=== PATIENT | male | born 1955 | race Caucasian/White ===

== ENCOUNTER 2018-01-16 20:50 | Inpatient (IN) | payer MEDICARE ==
[~2018-01-16] VITALS: Ht 177.8 cm; Wt 113.4 kg
[2018-01-16 21:00] VITALS: BP 113/68
[2018-01-16 22:00] VITALS: BP 113/68
[2018-01-16] MEDS ORDERED: DEXTROSE 50% WATER 50ML SYRINGE IV PRN (22:00)
[2018-01-16] MEDS ORDERED: LORAZEPAM 2MG/ML CPJ IV PRN (22:00)
[2018-01-16] MEDS ORDERED: ACETAMINOPHEN 325MG TABLET PO PRN (22:00)
[2018-01-16] MEDS ORDERED: CLONIDINE 0.1MG TABLET PO PRN (22:00)
[2018-01-16] MEDS ORDERED: ONDANSETRON HCL 4MG/2ML VIAL IV PRN (22:00)
[2018-01-16] MEDS ORDERED: NON FORMULARY PATIENT HOME MED EA XX SCH (22:00)
[2018-01-16] MEDS ORDERED: HALOPERIDOL LACTATE 5MG/ML VIAL IM PRN (22:00)
[2018-01-16] MEDS ORDERED: GLUCAGON,HUMAN RECOMBINANT 1MG/VIAL IM PRN (22:00)
[2018-01-17] MEDS: DILTIAZEM HCL 30MG TABLET PO SCH ×4 (00:01→20:54)
[2018-01-17] MEDS: BLOOD SUGAR DIAGNOSTIC STRIP TEST SCH ×3 (00:01→12:00)
[2018-01-17] MEDS: INSULIN LISPRO 100 UNITS/ML SUBCUT SCH ×4 (00:02→17:15)
[2018-01-17] MEDS ORDERED: LORAZEPAM 2MG/ML CPJ IV PRN ×2 (04:30→10:30)
[2018-01-17] MEDS ORDERED: SODIUM CHLORIDE 0.9% 1,000 ML IV PRN (04:30)
[2018-01-17] MEDS: MEROPENEM 500 MG in SODIUM CHLORIDE 0.9% 50 ML IV SCH ×2 (06:23→17:23)
[2018-01-17 06:49] LABS: BASOPHILS % 0.7 % (0.0-2.0); EOSINOPHILS % 2.5 % (0.0-5.0); HEMATOCRIT. 27.7 % (42.0-52.0); HEMOGLOBIN. 9.2 g/dL (14.0-18.0); LYMPHOCYTES % 18.5 % (20.0-50.0); MEAN CORPUSCULAR VOLUME 87.7 fL (80.0-94.0); MEAN PLATELET VOLUME 10.1 fl (7.4-10.4); MONOCYTES % 8.1 % (2.0-8.0); NEUTROPHILS % 70.2 % (40.0-76.0); PLATELET 232 x1000/uL (130-400); RED BLOOD CELL COUNT 3.15 mill/uL (4.7-6.1); RED CELL DISTRIBUTION WIDTH 14.4 % (11.6-14.6)
[2018-01-17 07:27] LABS: CHLORIDE 113 mEq/L (98-107)
[2018-01-17 08:00] VITALS: BP 120/81
[2018-01-17] MEDS: TAMSULOSIN HCL 0.4MG SR CAPSULE PO SCH (08:49)
[2018-01-17] MEDS: MIDODRINE HCL 2.5MG TABLET PO SCH ×3 (08:50→17:24)
[2018-01-17] MEDS: QUETIAPINE FUMARATE 50MG TABLET PO SCH ×2 (08:51→20:54)
[2018-01-17] MEDS: ENOXAPARIN 30MG/0.3ML SYR SUBCUT SCH ×2 (08:55→20:54)
[2018-01-17] MEDS ORDERED: ENOXAPARIN 30MG/0.3ML SYR SUBCUT SCH (09:00)
[2018-01-17] MEDS ORDERED: POTASSIUM CHLORIDE 20MEQ TABLET SR PO SCH ×2 (09:00→17:00)
[2018-01-17] MEDS ORDERED: ONDANSETRON HCL 4MG/2ML VIAL IV PRN (10:30)
[2018-01-17] MEDS ORDERED: CLONIDINE 0.1MG TABLET PO PRN (10:30)
[2018-01-17] MEDS ORDERED: ENOXAPARIN 40MG/0.4ML SYR SUBCUT SCH (10:30)
[2018-01-17] MEDS ORDERED: ACETAMINOPHEN 650MG/20.3ML UDC GT PRN (10:30)
[2018-01-17] MEDS ORDERED: IPRATROPIUM/ALBUTEROL 0.5-3(2.5)MG/3ML NEB INH PRN (10:30)
[2018-01-17] MEDS: POTASSIUM CHLORIDE 20MEQ TABLET SR PO SCH ×2 (11:32→13:06)
[2018-01-17 13:12] LABS: CLARITY URINE CLEAR (CLEAR); COLOR URINE YELLOW (YELLOW); KETONES URINE NEGATIVE (NEGATIVE); LEUKOCYTE ESTERASE URINE NEGATIVE (NEGATIVE); NITRITE URINE NEGATIVE (NEGATIVE); OCCULT BLOOD URINE TRACE (NEGATIVE); PH URINE 6.5 (4.5-8.0); PROTEIN URINE 1+ (NEGATIVE); SPECIFIC GRAVITY URINE 1.021 (1.005-1.030); UROBILINOGEN URINE 0.2 E.U./dL (0.2-1.0)
[2018-01-17] MEDS: ACETAMINOPHEN WITH CODEINE 300/30MG TABLET PO PRN (15:39)
[2018-01-17 15:47] LABS: AMMONIA 47 uMol/L (<32)
[2018-01-17 16:21] LABS: ETHANOL BLOOD < 10 mg/dL
[2018-01-17 16:26] LABS: CREATINE KINASE 252 IU/L (39-308)
[2018-01-17 16:27] LABS: T4 FREE 1.24 ng/dL (0.76-1.46)
[2018-01-17 16:38] LABS: FOLIC ACID (FOLATE) SERUM 16.7 ng/mL (>5.38)
[2018-01-17 17:17] LABS: OPIATES URINE SCREEN PRESUMTIVE POSITIVE (NEGATIVE); PHENCYCLIDINE URINE SCREEN NEGATIVE (NEGATIVE)
[2018-01-17 17:18] LABS: *AMPHETAMINES SCREEN URINE NEGATIVE (NEGATIVE); *BARBITURATES SCREEN URINE NEGATIVE (NEGATIVE); *BENZODIAZEPINES SCREEN URINE NEGATIVE (NEGATIVE); *COCAINE SCREEN URINE NEGATIVE (NEGATIVE); CANNABINOID URINE SCREEN PRESUMTIVE POSITIVE (NEGATIVE); METHADONE URINE SCREEN NEGATIVE (NEGATIVE)
[2018-01-17 20:00] VITALS: BP 140/77
[2018-01-18] MEDS: BLOOD SUGAR DIAGNOSTIC STRIP TEST SCH ×4 (00:14→17:47)
[2018-01-18] MEDS: INSULIN LISPRO 100 UNITS/ML SUBCUT SCH ×4 (00:14→17:46)
[2018-01-18] MEDS: DILTIAZEM HCL 30MG TABLET PO SCH ×3 (05:15→21:22)
[2018-01-18] MEDS: MEROPENEM 500 MG in SODIUM CHLORIDE 0.9% 50 ML IV SCH (05:15)
[2018-01-18 07:06] LABS: BASOPHILS % 0.3 % (0.0-2.0); EOSINOPHILS % 1.2 % (0.0-5.0); HEMATOCRIT. 27.3 % (42.0-52.0); HEMOGLOBIN. 9.1 g/dL (14.0-18.0); MEAN CORPUSCULAR HEMOGLOBIN 28.7 pg (28.0-32.0); MEAN CORPUSCULAR VOLUME 86.3 fL (80.0-94.0); MEAN PLATELET VOLUME 9.6 fl (7.4-10.4); MONOCYTES % 7.5 % (2.0-8.0); PLATELET 287 x1000/uL (130-400); RED BLOOD CELL COUNT 3.16 mill/uL (4.7-6.1); RED CELL DISTRIBUTION WIDTH 14.5 % (11.6-14.6)
[2018-01-18 07:24] LABS: CHLORIDE 115 mEq/L (98-107)
[2018-01-18 07:29] LABS: CREATINE KINASE 231 IU/L (39-308)
[2018-01-18 07:38] LABS: AMMONIA 38 uMol/L (<32)
[2018-01-18 08:00] VITALS: BP 95/54
[2018-01-18] MEDS: POTASSIUM CHLORIDE 20MEQ TABLET SR PO SCH ×3 (09:10→17:17)
[2018-01-18] MEDS: ENOXAPARIN 30MG/0.3ML SYR SUBCUT SCH ×2 (09:10→21:22)
[2018-01-18] MEDS: QUETIAPINE FUMARATE 50MG TABLET PO SCH ×2 (09:11→21:22)
[2018-01-18] MEDS: TAMSULOSIN HCL 0.4MG SR CAPSULE PO SCH (09:11)
[2018-01-18] MEDS: MIDODRINE HCL 2.5MG TABLET PO SCH ×3 (09:12→17:18)
[2018-01-18] MEDS: LIDOCAINE 5% PATCH TOP SCH (09:13)
[2018-01-18] MEDS: ACETAMINOPHEN WITH CODEINE 300/30MG TABLET PO PRN (12:56)
[2018-01-18] MEDS: METRONIDAZOLE 500MG TABLET PO SCH (17:18)
[2018-01-18 20:00] VITALS: BP 128/69
[2018-01-19] MEDS: BLOOD SUGAR DIAGNOSTIC STRIP TEST SCH ×4 (00:22→17:45)
[2018-01-19] MEDS: INSULIN LISPRO 100 UNITS/ML SUBCUT SCH ×4 (00:31→19:17)
[2018-01-19] MEDS: DILTIAZEM HCL 30MG TABLET PO SCH ×3 (06:00→21:52)
[2018-01-19 06:30] LABS: BASOPHILS % 1.1 % (0.0-2.0); EOSINOPHILS % 1.1 % (0.0-5.0); HEMATOCRIT. 25.9 % (42.0-52.0); HEMOGLOBIN. 8.7 g/dL (14.0-18.0); MEAN CORPUSCULAR HEMOGLOBIN 28.9 pg (28.0-32.0); MEAN CORPUSCULAR VOLUME 85.7 fL (80.0-94.0); MEAN PLATELET VOLUME 9.2 fl (7.4-10.4); MONOCYTES % 5.5 % (2.0-8.0); NEUTROPHILS % 75.3 % (40.0-76.0); PLATELET 264 x1000/uL (130-400); RED BLOOD CELL COUNT 3.02 mill/uL (4.7-6.1); RED CELL DISTRIBUTION WIDTH 14.8 % (11.6-14.6)
[2018-01-19 06:42] LABS: CHLORIDE 115 mEq/L (98-107)
[2018-01-19 06:52] LABS: PHOSPHORUS 2.1 mg/dL (2.5-4.9)
[2018-01-19 06:53] LABS: TOTAL IRON BINDING CAPACITY 157 ug/dL (250-450)
[2018-01-19 08:00] VITALS: BP 103/52
[2018-01-19] MEDS ORDERED: POTASSIUM CHLORIDE INJ 40 MEQ in DEXT 5% WATER 500 ML IV NR (08:00)
[2018-01-19] MEDS: METRONIDAZOLE 500MG TABLET PO SCH (08:06)
[2018-01-19] MEDS: POTASSIUM CHLORIDE 20MEQ TABLET SR PO SCH ×3 (08:07→17:40)
[2018-01-19] MEDS: TAMSULOSIN HCL 0.4MG SR CAPSULE PO SCH (08:07)
[2018-01-19] MEDS: QUETIAPINE FUMARATE 50MG TABLET PO SCH ×2 (08:08→21:51)
[2018-01-19] MEDS: MIDODRINE HCL 2.5MG TABLET PO SCH ×3 (08:08→17:44)
[2018-01-19] MEDS: ENOXAPARIN 30MG/0.3ML SYR SUBCUT SCH ×2 (08:09→21:51)
[2018-01-19] MEDS: LIDOCAINE 5% PATCH TOP SCH (08:09)
[2018-01-19] MEDS: ACETAMINOPHEN WITH CODEINE 300/30MG TABLET PO PRN (08:10)
[2018-01-19 11:59] LABS: PROSTRATE SPECIFIC AG TOTAL 0.75 ng/mL (0.0-4.0)
[2018-01-19] MEDS ORDERED: MAGNESIUM 2 G PREMIX 50 ML IV NR (16:30)
[2018-01-19] MEDS ORDERED: POTASSIUM-SODIUM PHOSPHATE POWDER PACKET PO SCH (17:00)
[2018-01-19] MEDS: POTASSIUM-SODIUM PHOSPHATE POWDER PACKET PO SCH (17:45)
[2018-01-19] MEDS: VANCOMYCIN HCL 1000 MG/20 ML ORAL PO SCH (17:49)
[2018-01-19 20:00] VITALS: BP 127/65
[2018-01-20] MEDS: BLOOD SUGAR DIAGNOSTIC STRIP TEST SCH ×4 (00:18→17:58)
[2018-01-20] MEDS: VANCOMYCIN HCL 1000 MG/20 ML ORAL PO SCH ×4 (00:19→18:23)
[2018-01-20] MEDS: INSULIN LISPRO 100 UNITS/ML SUBCUT SCH ×4 (00:26→18:32)
[2018-01-20] MEDS: IRON SUCROSE COMPLEX 100 MG in SODIUM CHLORIDE 0.9% 100 ML IV SCH ×2 (00:32→22:32)
[2018-01-20] MEDS: ACETAMINOPHEN WITH CODEINE 300/30MG TABLET PO PRN ×2 (01:51→12:33)
[2018-01-20] MEDS: DILTIAZEM HCL 30MG TABLET PO SCH ×3 (06:02→22:00)
[2018-01-20 07:13] LABS: BASOPHILS % 0.4 % (0.0-2.0); EOSINOPHILS % 1.6 % (0.0-5.0); HEMATOCRIT. 26.2 % (42.0-52.0); HEMOGLOBIN. 8.8 g/dL (14.0-18.0); LYMPHOCYTES % 19.3 % (20.0-50.0); MEAN CORPUSCULAR HEMOGLOBIN 28.9 pg (28.0-32.0); MEAN CORPUSCULAR VOLUME 86.3 fL (80.0-94.0); MEAN PLATELET VOLUME 9.2 fl (7.4-10.4); MONOCYTES % 6.2 % (2.0-8.0); NEUTROPHILS % 72.5 % (40.0-76.0); PLATELET 282 x1000/uL (130-400); RED BLOOD CELL COUNT 3.03 mill/uL (4.7-6.1); RED CELL DISTRIBUTION WIDTH 14.7 % (11.6-14.6)
[2018-01-20 07:31] LABS: CHLORIDE 114 mEq/L (98-107)
[2018-01-20 08:00] VITALS: BP 134/71
[2018-01-20] MEDS: POTASSIUM-SODIUM PHOSPHATE POWDER PACKET PO SCH ×3 (09:11→17:00)
[2018-01-20] MEDS: ENOXAPARIN 30MG/0.3ML SYR SUBCUT SCH ×2 (09:12→22:32)
[2018-01-20] MEDS: POTASSIUM CHLORIDE 20MEQ TABLET SR PO SCH ×6 (09:13→22:31)
[2018-01-20] MEDS: MIDODRINE HCL 2.5MG TABLET PO SCH ×3 (09:13→19:54)
[2018-01-20] MEDS: TAMSULOSIN HCL 0.4MG SR CAPSULE PO SCH (09:13)
[2018-01-20] MEDS: QUETIAPINE FUMARATE 50MG TABLET PO SCH ×2 (09:14→22:31)
[2018-01-20] MEDS: LIDOCAINE 5% PATCH TOP SCH (09:15)
[2018-01-20] MEDS ORDERED: DEXT 5% WATER + KCL 40MEQ/L 250 ML IV ONE (12:00)
[2018-01-20] MEDS: KCL 20MEQ/100ML PREMIX 100 ML IV SCH ×2 (16:18→19:54)
[2018-01-20 20:00] VITALS: BP 109/61
[2018-01-21] MEDS: BLOOD SUGAR DIAGNOSTIC STRIP TEST SCH ×3 (00:08→12:09)
[2018-01-21] MEDS: VANCOMYCIN HCL 1000 MG/20 ML ORAL PO SCH ×3 (00:08→11:33)
[2018-01-21] MEDS: DILTIAZEM HCL 30MG TABLET PO SCH ×2 (06:07→13:47)
[2018-01-21] MEDS: ACETAMINOPHEN WITH CODEINE 300/30MG TABLET PO PRN (06:09)
[2018-01-21] MEDS: INSULIN LISPRO 100 UNITS/ML SUBCUT SCH ×3 (06:10→12:16)
[2018-01-21 07:24] LABS: PHOSPHORUS 1.8 mg/dL (2.5-4.9)
[2018-01-21 07:32] LABS: HEMATOCRIT. 27.7 % (42.0-52.0); HEMOGLOBIN. 9.2 g/dL (14.0-18.0); MEAN PLATELET VOLUME 9.1 fl (7.4-10.4); PLATELET 308 x1000/uL (130-400); RED BLOOD CELL COUNT 3.18 mill/uL (4.7-6.1); RED CELL DISTRIBUTION WIDTH 14.9 % (11.6-14.6)
[2018-01-21 07:53] VITALS: BP 110/65
[2018-01-21] MEDS: LIDOCAINE 5% PATCH TOP SCH (08:06)
[2018-01-21] MEDS: POTASSIUM CHLORIDE 20MEQ TABLET SR PO SCH ×2 (08:07→13:47)
[2018-01-21] MEDS: ENOXAPARIN 30MG/0.3ML SYR SUBCUT SCH (08:07)
[2018-01-21] MEDS: TAMSULOSIN HCL 0.4MG SR CAPSULE PO SCH (08:08)
[2018-01-21] MEDS: MIDODRINE HCL 2.5MG TABLET PO SCH ×2 (08:08→13:47)
[2018-01-21] MEDS: QUETIAPINE FUMARATE 50MG TABLET PO SCH (08:08)
[2018-01-21 08:50] LABS: CHLORIDE 113 mEq/L (98-107)
[2018-01-21 12:54] VITALS: BP 110/65
[2018-01-21] MEDS ORDERED: POTASSIUM PHOS,M-BASIC-D-BASIC 20 MMOL in DEXT 5% WATER 243.3333 ML IV SCH (14:00)
[2018-01-21 16:30] LABS: PLATELET ESTIMATE NORMAL
== END 2018-01-21 17:40 | DRG 91 ==
PROVIDERS: ADMIT Physical Medicine & Rehabilitation Spinal Cord Injury Medicine; ATTEND Internal Medicine Nephrology
DX: G92 Toxic encephalopathy (principal); N18.6 End stage renal disease; J96.00 Acute respiratory failure, unspecified whether with hypoxia or hypercapnia; J69.0 Pneumonitis due to inhalation of food and vomit; A41.01 Sepsis due to Methicillin susceptible Staphylococcus aureus; M62.82 Rhabdomyolysis; I47.1 Supraventricular tachycardia; J98.11 Atelectasis; E87.0 Hyperosmolality and hypernatremia; N17.9 Acute kidney failure, unspecified; N13.8 Other obstructive and reflux uropathy; I12.0 Hypertensive chronic kidney disease with stage 5 chronic kidney disease or end stage renal disease; E72.20 Disorder of urea cycle metabolism, unspecified; A04.72 Enterocolitis due to Clostridium difficile, not specified as recurrent; R26.9 Unspecified abnormalities of gait and mobility; R53.81 Other malaise; E87.6 Hypokalemia; R13.10 Dysphagia, unspecified; N40.1 Benign prostatic hyperplasia with lower urinary tract symptoms; E11.22 Type 2 diabetes mellitus with diabetic chronic kidney disease; E66.9 Obesity, unspecified; R19.7 Diarrhea, unspecified; E83.42 Hypomagnesemia; D50.9 Iron deficiency anemia, unspecified; K80.20 Calculus of gallbladder without cholecystitis without obstruction; Z99.2 Dependence on renal dialysis; Z83.3 Family history of diabetes mellitus; Z68.35 Body mass index [BMI] 35.0-35.9, adult
CPT/HCPCS: 36415; 70551; 71045; 80048; 80053; 80305; 81003; 82140; 82306; 82550; 82607; 82668; 82728; 82746; 82962; 83036; 83540; 83550; 83735; 84100; 84134; 84153; 84439; 84443; 84481; 84630; 85025; 86850; 86900; 87493; 92523; 92610; 93005; 93970; 97110; 97112; 97163; 97166; 97530; 97535; A6261; G0482; G0515; J1650; J1815; J2185; J2405; J3370; J3475; J3480; J3490; J7050; J7060; A5200